=== PATIENT | female | born 1985 | race Caucasian/White ===

== ENCOUNTER 2017-08-02 09:33 | Emergency (ER) | payer OTHER ==
[2017-08-02 09:42] VITALS: BP 122/87
--- NOTE | 2017-08-02 11:20 | UC ---
Erik Marie Nikita, scribed for Chacho Monroe MD on 08/02/17 at 0953 . Skin Complaint HPI - HPI Summary HPI Summary: This patient is a 31 year old F presenting to [facility] with a chief complaint of a bee sting since 2 days ago. The CC is described as on the L upper lip area. The patient rates the pain 0/10 in severity. Symptoms aggravated by nothing. Symptoms alleviated by nothing (took Benadryl on day of sting without improvement). Patient reports increased redness and swelling on L side of her face. Patient denies SOB and respiratory sx. The patient is . - History of Current Complaint Chief Complaint: UCSkin Time Seen by Provider: 08/02/17 09:38 Stated Complaint: BEE STING Hx Obtained From: Patient Hx Last Menstrual Period: 07/29/17 ?: Yes Onset/Duration: Sudden Onset, Lasting Days, Still Present Skin Exposure Onset/Duration: Days Ago Timing: Constant Current Severity: None Pain Intensity: 0 Pain Scale Used: 0-10 Numeric Location: Other - L upper lip Aggravating Factor(s): Nothing Alleviating Factor(s): Nothing - Allergy/Home Medications Allergies/Adverse Reactions: Allergies Allergy/AdvReac Type Severity Reaction Status Date / Time No Known Allergies Allergy Verified 08/02/17 09:37 Home Medications: Home Medications diPHENhydraMINE PO* [Benadryl PO 25 MG TAB*] 2 tab PO ONCE PRN 08/02/17 [ History Confirmed 08/02/17] Review of Systems Skin: Other - bee sting, increased redness and swelling on L side of her face Respiratory: Other - denies SOB or any respiratory sx All Other Systems Reviewed And Are Negative: Yes PMH/Surg Hx/FS Hx/Imm Hx Endocrine History: Other Other Endocrine History: No DM Cardiovascular History: Other Other Cardiovascular History: No CAD, HTN - Surgical History Surgical History: None - Family History Known Family History: Positive: Hypertension Negative: Diabetes - Social History Alcohol Use: Occasionally Substance Use Type: None Smoking Status (MU): Heavy Every Day Tobacco Smoker Amount Used/How Often: 1/2 PPD Household Exposure Type: Cigarettes Physical Exam - Summary Physical Exam Summary: VITAL SIGNS: Reviewed. GENERAL: ~Patient is a well-developed and nourished FEMALE who is lying comfortable in the stretcher. ~Patient is not in any acute respiratory distress. HEAD AND FACE: Swelling on L side of face with some erythema. EYES: PERRLA, EOMI x 2. EARS: Hearing grossly intact. MOUTH: Oropharynx within normal limits. NECK: Supple, trachea is midline, no adenopathy, no JVD, no carotid bruit. CHEST: Symmetric, no tenderness at palpation LUNGS: Clear to auscultation bilaterally. No wheezing or crackles. CVS: Regular rate and rhythm, S1 and S2 present, no murmurs or gallops appreciated. ABDOMEN: Soft, non-tender. Bowel sounds are normal. No abdominal abnormal pulsations. EXTREMITIES: Full ROM in all major joints, no edema, no cyanosis or clubbing. NEURO: Alert and oriented x 3. No acute neurological deficits. Speech is normal and follows commands. SKIN: Dry and warm Triage Information Reviewed: Yes Vital Signs: Initial Vital Signs Temp 98.4 F 08/02/17 09:38 Pulse 82 08/02/17 09:38 Resp 16 08/02/17 09:38 BP 122/87 08/02/17 09:38 Pulse Ox 100 08/02/17 09:38 Vital Signs Reviewed: Yes Course/Dx - Course Course Of Treatment: This patient is a 31 year old F presenting to [facility] with a chief complaint of a bee sting since 2 days ago. The patient was found to have increased BP in UC. The patient will follow up with PCP for better control of BP. The pt is hemodynamically stable, alert and oriented x3. I discussed all the findings and test results with the patient. The patient will be discharged with instructions to follow up with their PCP. Patient was instructed to return to the urgent care or go to ER immediately if any of the symptoms return or worsens. Plan of care was discussed with the patient, and patient understands and agrees. All questions were answered to patient satisfaction. There were no further complaints or concerns. - Diagnoses Provider Diagnoses: cellulitis Discharge - Sign-Out/Discharge Documenting (check all that apply): Discharge/Admit/Transfer - Discharge Plan Condition: Stable Disposition: HOME Prescriptions: Amoxicillin PO (*) [Amoxicillin 875 MG (*)] 875 mg PO BID #20 tab Patient Education Materials: Cellulitis (ED) Referrals: Valdez Whitfield MD [Primary Care Provider] - Additional Instructions: Take medications as instructed Increase your fluid intake Return to the UC if symptoms worsen The documentation as recorded by the samibErik mcdonald Nikita accurately reflects the service I personally performed and the decisions made by me, Chacho Monroe MD.
== END 2017-08-02 09:57 | disposition home or self-care (01) ==
LOC: UCEAST 09:33
DX: O26.899 Other specified pregnancy related conditions, unspecified trimester (principal); K13.0 Diseases of lips; F17.210 Nicotine dependence, cigarettes, uncomplicated
CPT/HCPCS: 99212; G0463

== ENCOUNTER 2018-11-11 10:58 | Emergency (ER) | payer OTHER ==
[2018-11-11] MEDS ORDERED: Metoclopramide IV* 5 MG/ML 2 ML VIAL IV SLOW PU ONE (12:57)
[2018-11-11] MEDS ORDERED: NS 0.9% 1000 ML** 1,000 ML IV ONE (13:00)
--- NOTE | 2018-11-11 13:17 | UC ---
Nausea/Vomiting/Diarrhea HPI - HPI Summary HPI Summary: 33-year-old female who is 31 weeks presents from [facility] for 3-4 day history of general malaise, headache, nausea, vomiting, low back pain, and abdominal cramping. Reports she is only had a couple episodes of emesis. Typically occur after eating. States she was evaluated by MEGAN Gomez, including monitoring and was told she did not feel it was related and suggested she come to urgent care for fluids and antiemetics. Patient states that she also had a urinalysis performed which was normal. . Denies fever, chills, visual disturbances, neck pain, rash, chest pain, shortness of breath, dysuria, hematuria, no discharge, or vaginal bleeding. - History of Current Complaint Chief Complaint: UCAbdominalPain Stated Complaint: ABDOMINAL COMPLAINT VOMITING Time Seen by Provider: 11/11/18 12:33 Hx Obtained From: Patient ?: Yes - 31 weeks Pain Intensity: 4 - Allergies/Home Medications Allergies/Adverse Reactions: Allergies Allergy/AdvReac Type Severity Reaction Status Date / Time No Known Allergies Allergy Verified 11/11/18 11:31 Home Medications: Home Medications Anw226/Iron Fum/Folic/Docusate [ 19 Tablet] 11/11/18 [History] PMH/Surg Hx/FS Hx/Imm Hx Previously Healthy: Yes - Denies significant PMH Other History Of: Negative For: Anticoagulant Therapy - Surgical History Surgical History: None - Family History Known Family History: Positive: Hypertension Negative: Diabetes - Social History Occupation: Employed Full-time Lives: With Family Alcohol Use: None Substance Use Type: None Smoking Status (MU): Heavy Every Day Tobacco Smoker Amount Used/How Often: 1/2 PPD Household Exposure Type: Cigarettes - Immunization History Vaccination Up to Date: Yes Review of Systems All Other Systems Reviewed And Are Negative: Yes Constitutional: Negative: Fever, Chills Skin: Negative: Rash Respiratory: Positive: Negative Cardiovascular: Positive: Negative Gastrointestinal: Positive: Abdominal Pain - Cramping, Vomiting, Nausea. Negative: Diarrhea Genitourinary: Negative: Dysuria, Hematuria, Frequency, Urgency, Vaginal/Penile Discharge, Abnormal Bleeding Musculoskeletal: Positive: Negative Neurological: Positive: Negative Is Patient Immunocompromised?: No Physical Exam - Summary Physical Exam Summary: GENERAL APPEARANCE: Well developed, well nourished, alert and cooperative, and appears to be in no acute distress. EYES: Conjunctiva clear. No drainage. EARS: External auditory canals and tympanic membranes clear, hearing grossly intact. NOSE: No nasal discharge. THROAT: Pharynx normal No tonsilar inflammation, swelling, exudate, or lesions. Uvula midline. Oral cavity normal. Teeth and gingiva in good general condition. NECK: Neck supple, non-tender without lymphadenopathy. CARDIAC: Normal S1 and S2. No S3, S4 or murmurs. Rhythm is regular. There is no peripheral edema, cyanosis or pallor. Extremities are warm and well perfused. Capillary refill is less than 2 seconds. Peripheral pulses intact. LUNGS: Clear to auscultation without rales, rhonchi, wheezing or diminished breath sounds. ABDOMEN: Positive bowel sounds. Soft, nondistended, nontender. No guarding or rebound. No masses or hepatosplenomegally. Fundus consistent with gestational age. MUSKULOSKELETAL: ROM intact to all extremities. No joint erythema or tenderness. Normal muscular development. Normal gait. SKIN: Skin normal color, texture and turgor with no lesions or eruptions. Triage Information Reviewed: Yes Vital Signs: Initial Vital Signs Temp 98.6 F 11/11/18 11:23 Pulse 85 11/11/18 11:23 Resp 18 11/11/18 11:23 BP 122/85 11/11/18 11:23 Pulse Ox 99 11/11/18 11:23 Vital Signs Reviewed: Yes Re-Evaluation - Re-Evaluation First Eval Re-Evaluation Time: 13:58 Change: Improved Comment: Patient states her nausea has subsided. She has received about 700 ml of IVF. Reviewed her UA results with her. Patient states she is feeling very tired and would like to go home at this time to rest. I feel that this is reasonable however discussed with the patient that if she has further abdominal cramping with vomiting that she should be evaluated in the ED. She is agreeable to this. Naus/Vom/Diarrhea Course/Dx - Course Course Of Treatment: 33-year-old female who is 31 weeks presents from [facility] for 3-4 day history of general malaise, headache, nausea, vomiting, low back pain, and abdominal cramping. Reports she is only had a couple episodes of emesis. Typically occur after eating. States she was evaluated by MEGAN Gomez, including monitoring and was told she did not feel it was related and suggested she come to urgent care for fluids and antiemetics. Patient states that she also had a urinalysis performed which was normal. . Denies fever, chills, visual disturbances, neck pain, rash, chest pain, shortness of breath, dysuria, hematuria, no discharge, or vaginal bleeding. Afebrile. Vital signs stable. Exam was overall unremarkable. Point -of-care urinalysis was normal. Patient was given IV fluids and metoclopramide 10 mg IV with improvement in her symptoms. Patient received a total of about 700 mL of normal saline before requesting to be discharged home. She is to follow-up with her [employer]CRA[employer] TEACHER within 3 days if her symptoms are not improving. Anticipatory guidance and warning symptoms requiring immediate evaluation in the emergency room were reviewed with the patient. Verbalizes understanding and agrees with plan of care. - Differential Dx/Diagnosis Differential Diagnoses - Female: , Urinary Tract Infection, Gastroenteritis (Viral), Gastroenteritis (Bacterial), Vomiting Provider Diagnosis: Nausea and vomiting during Condition At Discharge: Stable Discharge - Sign-Out/Discharge Documenting (check all that apply): Patient Departure All imaging exams completed and their final reports reviewed: No Studies - Discharge Plan Condition: Stable Disposition: HOME Patient Education Materials: Nausea and Vomiting in (ED) Referrals: No Primary Care Phys,NOPCP [Primary Care Provider] - Ben Wright MD [Medical Doctor] - 3 Days Additional Instructions: You were given IV fluids and a medication called metoclopramide for your nausea. Your urine test was normal. Drink plenty of fluids. Try to drink small amounts frequently to avoid filling your stomach to full which can cause vomiting. If you are still having vomiting, start with a clear liquid diet including soup broths, Jello, popsicles, and yony-josafat with carbonation stirred out of it. You may then advance to a bland diet including saltine crackers, toast, bananas , rice, and applesauce. Then return to a normal diet as tolerated. Follow up with your [employer]CRAFTS TEACHER in 3 days especially if symptoms persist. Seek immediate medical attention in the emergency room if you develop fever greater than 100.5 F, have severe abdominal pain, persistent vomiting, blood in your vomit or stool, or any worsening of symptoms. - Billing Disposition and Condition Condition: STABLE Disposition: Home
[2018-11-11 14:01] VITALS: BP 117/63
== END 2018-11-11 14:12 | disposition home or self-care (01) ==
LOC: UCEAST 10:58
DX: O26.893 Other specified pregnancy related conditions, third trimester (principal); O99.333 Smoking (tobacco) complicating pregnancy, third trimester; Z3A.31 31 weeks gestation of pregnancy
CPT/HCPCS: 81003; 96360; 96374; 99211; G0463; J2765

== ENCOUNTER 2019-01-03 05:57 | Inpatient (IN) | payer OTHER ==
--- NOTE | 2019-01-02 18:55 | HP ---
General Information - Reason for Visit Patient with a 39 week in breech presentation, desires permanent sterilization. - General Information Maternal Age: 33 Grav: 7 Para: 1 SAB: 4 IEA: 1 Estimated Due Date: 01/10/19 Determined By: Early Ultrasound Gestational Age in Weeks/Days: 39 0/7 Maternal Blood Type and Rh: B Positive - Results this Serology/RPR Result: Non-Reactive Rubella Result: Immune HBsAg Result: Negative HIV Result: Negative GBS Culture Result: Negative Past Medical History Delivery History: See Records Pertinent Past Medical History: See Records Past Medical History Comment: Anxiety Cigarette smoker Tension Headaches Presumptive endometriosis Pertinent Past Surgical History: See Records Pertinent Family History: See Records - Antepartal Records Antepartal Records: Reviewed, Complicated by: - Breech presentation Exam Allergies/Adverse Reactions: Allergies No Known Allergies Allergy (Verified 01/01/19 13:54) Temp 89.7 BP 122/84 P 84 RR 20 Lab Values - Entire Visit: Laboratory Tests 01/01/19 13:45 WBC Cancelled RBC Cancelled Hgb Cancelled Hct Cancelled MCV Cancelled MCH Cancelled MCHC Cancelled RDW Cancelled Plt Count Cancelled MPV Cancelled Neut % (Auto) Cancelled Lymph % (Auto) Cancelled [place] % (Auto) Cancelled Eos % (Auto) Cancelled Baso % (Auto) Cancelled Absolute Neuts (auto) Cancelled Absolute Lymphs (auto) Cancelled Absolute Monos (auto) Cancelled Absolute Eos (auto) Cancelled Absolute Basos (auto) Cancelled Absolute Nucleated RBC Cancelled Nucleated RBC % Cancelled Hypogranular Platelets Cancelled Clumped Platelets Cancelled Large Platelets Cancelled Giant Platelets Cancelled - Measurements Height: 5 ft 2 in Weight: 183 lb Weight in lbs: 183.168023 Body Mass Index (BMI): 33.5 Pre- Weight: 156 lb Weight Gained This : 27 lbs and 0 ozs - Exam Breast: Breast Exam Deferred CVA: No CVA Tenderness Extremities: No Edema Heart: Normal Rhythm/Heart Sounds HEENT: No Significant Findings Lungs: Clear Bilaterally Rectal: Rectal Exam Deferred Reflexes: DTR 2+ Thyroid: No Thyromegaly - Abdominal Exam Abdomen Exam: Non-Tender, Fundal Height Consistent with Dates - Ultrasound/Biophysical Profile Ultrasound Status: Bedside Exam - Breech presentation confirmed at office ultrasound 01/02/19 Targeted Exam Findings See L&D Outpatient Visit Provider Note for Findings: N/A Cervical Exam: Closed Effacement: 70% Station: -2 Presenting Part: Breech Membrane Status: Intact EFM Findings - External Monitor Findings Baseline Heart Rate: 140 - by dopplers Contractions: None Assessment/Plan - Assessment Term breech presentation, desires delivery and sterilization , declined External version. - Obstetrical Risk Factors Obstetrical Risk Factors: Breech - Plan Plan: IV Hydration, Antibiotic Prophylaxis, C/S Delivery - Date/Time of Admission Date of Admission: 01/03/19 Time of Admission: 06:00
[~2019-01-03 05:57] MED LIST: Buffered Lidocaine 1% SYRIN* 1 ML/SYRINGE INTRADERM ONE; Lactated Ringers 1000 ML Bag* 1,000 ML IV SCH
[2019-01-03] MEDS ORDERED: Acetaminophen TAB* 325 MG PO ONE (06:00)
[2019-01-03] MEDS ORDERED: ceFOXitin 2 GM IVPREMIX* 2 GM/50 ML BAG IVPB ONE (06:00)
[2019-01-03] MEDS ORDERED: Sodium Citrate/Citric Acid* 15 ML UDC PO ONE (06:00)
[2019-01-03] MEDS ORDERED: Lactated Ringers 1000 ML Bag* 1,000 ML IV SCH ×2 (06:00→10:00)
[2019-01-03] MEDS ORDERED: Morphine PF AMP (0.5MG/ML)* 5 MG/10 ML AMP ONE (07:40)
[2019-01-03] MEDS ORDERED: OXYTOCIN* 10 UNITS/ML 1 ML VIAL ONE (07:40)
[2019-01-03] MEDS ORDERED: Bupivacaine 0.5% SDV PF* 30ML VIAL ONE (07:40)
[2019-01-03 07:44] LABS: Urine Benzodiazepine Screen None Detected (None Detect); Urine Opiates Screen None Detected (None Detect)
[2019-01-03] MEDS ORDERED: Scopolamine 1.5 mg* PATCH ONE (08:08)
[2019-01-03] MEDS ORDERED: Phenylephrine 40 MCG/ML SYRINGE ONE (08:27)
[2019-01-03] MEDS ORDERED: Dexamethasone IV* 4 MG/ML 1 ML (4 MG) ONE (08:32)
[2019-01-03] MEDS ORDERED: Ondansetron INJ* 2 MG/ML VIAL ONE (08:32)
[2019-01-03] MEDS ORDERED: Acetaminophen IV 1GM/100ML * 100 ML ONE (08:40)
[2019-01-03] MEDS ORDERED: EPHEDrine (Pressors)* 50 MG/ML VIAL ONE (08:41)
[2019-01-03] MEDS ORDERED: Ketorolac INJ* 30 MG/ML 1 ML VIAL ONE (09:13)
[2019-01-03] MEDS ORDERED: DiMENhydriNATE IV* 50 MG/ML VIAL ONE (09:18)
[2019-01-03] MEDS ORDERED: Zolpidem TAB* 5 MG PO PRN (09:42)
[2019-01-03] MEDS ORDERED: Glycerin ADULT SUPP PR PRN (09:42)
[2019-01-03] MEDS ORDERED: Witch Hazel PAD* JAR TOPICAL PRN (09:42)
[2019-01-03] MEDS ORDERED: Dibucaine 1% 28.35 GM TUBE PR PRN (09:42)
[2019-01-03] MEDS ORDERED: fentaNYL* 50 MCG/ML 2 ML VIAL (100 MCG VIAL) IV PRN (10:17)
[2019-01-03] MEDS ORDERED: Naloxone* 0.4 MG/ML 1 ML VIAL IV PRN ×2 (10:17)
[2019-01-03] MEDS ORDERED: PROCHLORPERAZINE INJ 5 MG/ML 2 ML VIAL IV PRN (10:17)
[2019-01-03] MEDS ORDERED: Nalbuphine* 10 MG/ML 1 ML VIAL IV PRN (10:17)
[2019-01-03] MEDS ORDERED: diPHENhydraMINE IV* 50 MG/ML 1 ml VIAL (BENADRYL) IV PRN (10:17)
[2019-01-03] MEDS ORDERED: DiMENhydriNATE IV* 50 MG/ML VIAL IV PUSH PRN (10:17)
[2019-01-03] MEDS ORDERED: HYDROcodone/ACETAMIN 5-325 MG* 1 TAB PO PRN (10:17)
[2019-01-03] MEDS ORDERED: Ondansetron INJ* 2 MG/ML VIAL IV PRN (10:17)
[2019-01-03] MEDS ORDERED: Ketorolac INJ* 30 MG/ML 1 ML VIAL IV SCH (11:00)
[2019-01-03] MEDS: Simethicone TAB* 80 MG TAB.CHEW PO SCH ×3 (13:42→21:44)
[2019-01-03] MEDS: Docusate CAP* 100 MG PO SCH ×2 (13:43→21:44)
[2019-01-03] MEDS: Acetaminophen TAB* 325 MG PO SCH ×2 (15:32→19:59)
[2019-01-03] MEDS: Ketorolac INJ* 30 MG/ML 1 ML VIAL IV SCH ×2 (15:32→23:11)
[2019-01-04] MEDS: Acetaminophen TAB* 325 MG PO PRN (04:52)
[2019-01-04] MEDS: Acetaminophen TAB* 325 MG PO SCH (04:53)
[2019-01-04] MEDS: Ketorolac INJ* 30 MG/ML 1 ML VIAL IV SCH (05:17)
[2019-01-04 06:12] LABS: ABS Eosinophils 0.1 10^3/ul (0-0.6); ABS Lymphocytes 1.7 10^3/ul (1.0-4.8); ABS Monocytes 0.9 10^3/ul (0-0.8); ABS Neutrophils 7.5 10^3/ul (1.5-7.7); Eosinophil % 0.6 %; Hematocrit 25 % (35-47); Hemoglobin 8.3 g/dL (12.0-16.0); Lymphocyte % 16.3 %; Mean Corpuscular HGB Conc 33 g/dL (31-36); Mean Corpuscular Hemoglobin 26 pg (27-31); Mean Corpuscular Volume 79 fL (80-97); Mean Platelet Volume 8.8 fL (7.4-10.4); Platelet Count 253 10^3/uL (150-450); Red Blood Count 3.16 10^6 /uL (3.70-4.87); Red Cell Distribution Width 15 % (10-15); White Blood Count 10.2 10^3/uL (3.5-10.8)
[2019-01-04] MEDS: Simethicone TAB* 80 MG TAB.CHEW PO SCH ×4 (08:23→21:18)
[2019-01-04] MEDS: Docusate CAP* 100 MG PO SCH ×3 (08:23→21:18)
[2019-01-04] MEDS: Ferrous Gluconate TAB* 324 MG TAB PO SCH ×2 (08:23→21:18)
[2019-01-04] MEDS: oxyCODONE/Acetamin 5/325 MG* TAB PO PRN ×4 (10:09→21:19)
[2019-01-04] MEDS: Ibuprofen TAB* 600 MG PO PRN ×2 (12:20→18:24)
--- NOTE | 2019-01-04 15:56 | PN ---
Progress Note - Progress Note Date of Service: 01/04/19 Note: [SUBJECTIVE: Pt doing well this AM. POD#1 s/p pLTCS, BTL for Breech presentation, elective BTL. Pain control adequate. Tolerating regular diet. Woodard out and voiding spontaneously. Bottle feeding baby. Denies fever, chills, n/v/d, cp, sob. ] Objective: [AVSS, afebrile, hemodynamically stable Gen: nad, aaox3 CV: RRR Pulm: CTABL Abd: soft, nd, nttp, no rebound, no guarding, fundus firm below the Umbilicus Incision: c/d/i with steris Ext: warm, nttp, neg joseline's, SCD's on and inflating : woodard out, voiding spontaneously] Assessment/Plan: 19 y/o POD#1 s/p pLTCS, BTL, for breech, doing well post-operatively: - AVSS, afebrile, hemodynamically stable - post op H/H hct 25 - on PO Fe. Pt is asymptomatic. - Doing well post operatively - Woodard out - s/p spontaneous void - Tolerating regular diet - Pain appropriately controlled - Incision c/d/i with steris and subcuticular sutures - Bottle Feeding - Desires Circ for baby boy - Continue routine post-operative care DO TOBIAS Antonio
[2019-01-05] MEDS: oxyCODONE/Acetamin 5/325 MG* TAB PO PRN ×4 (01:39→20:47)
[2019-01-05] MEDS: Ferrous Gluconate TAB* 324 MG TAB PO SCH ×2 (08:13→20:48)
[2019-01-05] MEDS: Simethicone TAB* 80 MG TAB.CHEW PO SCH ×4 (08:13→20:48)
[2019-01-05] MEDS: Docusate CAP* 100 MG PO SCH ×4 (08:13→20:48)
[2019-01-05] MEDS: Ibuprofen TAB* 600 MG PO PRN ×3 (08:13→15:52)
--- NOTE | 2019-01-05 10:58 | PN ---
Progress Note - Progress Note Date of Service: 01/05/19 Note: SUBJECTIVE: Pt doing well this AM. POD#2 s/p pLTCS, BTL for Breech presentation, elective BTL. Pain control adequate. Tolerating regular diet. Woodard out and voiding spontaneously. Bottle feeding baby, discussed benefits of breast feeding, pt is contemplating, nursing offered help. Denies fever, chills, n/v/d, cp, sob. Objective: AVSS, afebrile, hemodynamically stable Gen: nad, aaox3 CV: RRR Pulm: CTABL Abd: soft, nd, nttp, no rebound, no guarding, fundus firm below the Umbilicus Incision: c/d/i with steris Ext: warm, nttp, neg joseline's, SCD's on and inflating : woodard out, voiding spontaneously Assessment/Plan: 33 y/o POD#2 s/p pLTCS, BTL, for breech, doing well post-operatively: - AVSS, afebrile, hemodynamically stable - post op H/H hct 25 - on PO Fe. Pt is asymptomatic. - Doing well post operatively - Woodard out - voiding spontaneously - Tolerating regular diet - Pain appropriately controlled - Incision c/d/i with steris and subcuticular sutures - Bottle Feeding, contemplating trying breast feeding, nursing assistance and support reviewed with pt, encouraged to try BF - Desires Circ for baby boy - to be done this AM - Continue routine post-operative care, anticipate discharge home tomorrow DO TOBIAS Antonio
[2019-01-05] MEDS: Acetaminophen TAB* 325 MG PO PRN (15:08)
--- NOTE | 2019-01-05 22:27 | OP ---
CC: Dequan Gomez MD.* DATE OF OPERATION: 01/03/19 - ROOM #105 DATE OF : 83 SURGEON: Ben Wright MD. PRESS SET UP: Dequan Gomez MD. ANESTHESIA: Spinal. PRE-OP DIAGNOSES: 1. Intrauterine at 39 weeks. 2. Breech presentation. 3. The patient desires sterilization. POST-OP DIAGNOSES: 1. Intrauterine at 39 weeks. 2. Breech presentation. 3. The patient desires sterilization. OPERATIVE PROCEDURE: Low transverse section and bilateral tubal ligation via fimbriectomy. ESTIMATED BLOOD LOSS: 600 cc. SPECIMENS SENT TO PATHOLOGY: Bilateral tubal fimbriae. FLUIDS: She received 3600 cc of IV crystalloid fluid. URINE OUTPUT: Clear. FINDINGS: Delivery of a male in jorge breech presentation, weighing 8 pounds 6 ounces, with nuchal cord x2 and meconium fluid. Apgars were 9 and 9. The placenta was grossly intact with a 3-vessel cord noted. The uterus, adnexa , bowel, and bladder were all within normal limits and there were no complications. DESCRIPTION OF PROCEDURE: The patient was taken to the operating room where she was identified. She was placed on the operating table where a spinal anesthetic was obtained without difficulty. She was then placed in the supine position with a leftward tilt, prepped and draped in a normal sterile fashion. A Pfannenstiel skin incision was made with a knife and carried through to the underlying layer of fascia. The fascia was nicked in the midline and extended laterally with curved Oswald scissors. The fascia was then grasped superiorly and inferiorly with Hortensia clamps and dissected off sharply from the rectus muscle. The rectus muscle was in the midline bluntly. The peritoneum was identified, grasped with pickups, entered sharply with Metzenbaum scissors and extended superiorly and inferiorly, sharply. A bladder blade was inserted into the patient's abdomen. A bladder flap was created using Metzenbaum scissors, over which the bladder blade was then reinserted. A low transverse uterine incision was made with a knife, extended laterally with bandage scissors. The amniotic sac was ruptured. Clear fluid was noted. The infant's breech was then grasped and the infant was delivered through breech extraction. After the infant was delivered, nuchal cord x2 was reduced. The cord was clamped and cut, and the infant was handed off to the waiting shrinker. Cord blood was obtained. The placenta was removed manually. The uterus was then exteriorized, cleared of all clot and debris using moist laparotomy sponges. The uterine incision was then closed using 0 Polysorb suture in a running locked fashion with a second imbricating layer of 0 Polysorb suture with good hemostasis noted. The uterus was then returned to the patient's abdomen. The gutters were then cleared of all clot and debris using irrigation and moist laparotomy sponges. Irrigation fluid was suctioned. The sponges were then removed from the patient's abdomen. The sponge and lap count was correct x1 as well as the instrument count. The peritoneum was then closed using 3-0 Polysorb suture in a running fashion. The fascia was closed using 0 Polysorb suture in a running fashion and the skin was closed with a 4-0 Monocryl subcuticular stitch. The patient tolerated the procedure well. Sponge , lap, and needle counts were correct x2. She was then transferred to the recovery area in stable condition. [id number]/[facility] #: [id number] TOMMY
[2019-01-06] MEDS: oxyCODONE/Acetamin 5/325 MG* TAB PO PRN ×3 (01:40→09:31)
[2019-01-06] MEDS: Ibuprofen TAB* 600 MG PO PRN ×2 (01:41→08:39)
[2019-01-06 07:58] VITALS: BP 134/83
[2019-01-06] MEDS: Simethicone TAB* 80 MG TAB.CHEW PO SCH (08:39)
[2019-01-06] MEDS: Docusate CAP* 100 MG PO SCH (08:39)
[2019-01-06] MEDS: Ferrous Gluconate TAB* 324 MG TAB PO SCH (08:39)
[2019-01-06] MEDS ORDERED: Scopolamine PATCH Remove* 1 NOTE MISC PATCH OFF ONE (10:17)
[2019-01-06] MEDS ORDERED: Scopolamine PATCH Remove* 1 NOTE MISC PATCH OFF PRN (10:19)
--- NOTE | 2019-02-14 14:36 | OP ---
OPERATIVE REPORT: ADDENDUM: DATE OF OPERATION: 01/03/19 DATE OF : 83 SURGEON: Ben Wright MD. PRE-OP DIAGNOSES: 1. Intrauterine at 39 weeks. 2. Breech presentation. 3. The patient desires sterilization. POST-OP DIAGNOSES: 1. Intrauterine at 39 weeks. 2. Breech presentation. 3. The patient desires sterilization. DESCRIPTION OF PROCEDURE: After the uterus was exteriorized, the uterine incision was closed using 0 Polysorb sutures. Attention was then brought onto the patient's fallopian tubes bilaterally which w ere then grasped with a Anabela and a Rosana clamp and bilateral fimbriectomy was performed in the usu al fashion using 3-0 Polysorb sutures. Portions of the right and left fallopian tube were sent to pa thjonathan. The surgical site of the tubal ligation was hemostatic. The uterus was then reintroduced i nto the patient's abdomen after which the gutters were cleared of all clots and debris using moist la parotomy sponges. The peritoneum was closed using 3-0 Polysorb suture in a running fashion. The fas ganga was closed using 0 Polysorb suture in a running fashion and the skin was closed with 4-0 Monocryl subcuticular stitch. The patient tolerated the procedure well. Sponge, lap and needle counts were correct x2. She was then transferred to the recovery room area in stable condition. [id number]/[facility] #: [id number]
== END 2019-01-06 09:47 | disposition home or self-care (01) | DRG 540 ==
LOC: MCHOB 05:57
PROVIDERS: ADMIT Obstetrics & Gynecology; ATTEND Obstetrics & Gynecology
PROC: 0UB70ZZ Excision of Bilateral Fallopian Tubes, Open Approach (ICD-10-PCS; 2019-01-03)
PROC: 10D00Z1 Extraction of Products of Conception, Low, Open Approach (ICD-10-PCS; principal; 2019-01-03 07:45)
DX: O32.1XX0 Maternal care for breech presentation, not applicable or unspecified (principal); O99.334 Smoking (tobacco) complicating childbirth; O99.344 Other mental disorders complicating childbirth; F41.9 Anxiety disorder, unspecified; O77.0 Labor and delivery complicated by meconium in amniotic fluid; O69.81X0 Labor and delivery complicated by cord around neck, without compression, not applicable or unspecified; O90.81 Anemia of the puerperium; D64.9 Anemia, unspecified; Z3A.39 39 weeks gestation of pregnancy; Z37.0 Single live birth; Z30.2 Encounter for sterilization
CPT/HCPCS: 36415; 76815; 80307; 85025; 88302; A9270-GY; J0694; J1100; J1240; J1885; J2300; J2405; J2590; J3490

== ENCOUNTER 2019-06-24 22:56 | Emergency (ER) | payer OTHER ==
--- NOTE | 2019-06-24 23:07 | ED ---
Abdominal Pain/Female - HPI Summary HPI Summary: Patient complains of sudden onset severe lower abdominal pain starting immediately after intercourse tonight at 10 PM. States she felt fine prior, no pain during intercourse. Denies rough sex or foreign body penetration. One episode of vomiting and diaphoresis with sudden onset pain. Pain worse when lying on back or with movement. Denies prior history of same symptoms. Denies fever, cough, sore throat, CP, SOB, diarrhea, change in urine, change in BM, vaginal discharge or bleeding. Recent history of UTI, took last Bactrim today. Currently no urine symptoms. Medical history is none. Abdominal surgical history 1 in 2019. - History of Current Complaint Chief Complaint: EDAbdPain Stated Complaint: ABD PAIN PER PT Time Seen by Provider: 06/24/19 23:04 Hx Obtained From: Patient Onset/Duration: Sudden Onset, Lasting Hours Timing: Constant Severity Initially: Severe Severity Currently: Moderate Pain Intensity: 7 Pain Scale Used: 0-10 Numeric Location: Discrete At: RLQ, Discrete At: LLQ, Suprapubic Radiates: No Character: Sharp Aggravating Factor(s): Movement Alleviating Factor(s): Position Associated Signs and Symptoms: Positive: Vomiting Allergies/Adverse Reactions: Allergies Allergy/AdvReac Type Severity Reaction Status Date / Time No Known Allergies Allergy Verified 06/24/19 23:04 Home Medications: Home Medications [id number]/Iron Fum/Folic/Docusate [ 19 Tablet] 1 tab PO DAILY 11/11/18 [ History Confirmed 01/03/19] Calcium Carbonate [Tums] 200 mg PO SEE INSTRUCTIONS PRN 01/01/19 [History Confirmed 01/03/19] Gas-X 1 tab PO SEE INSTRUCTIONS PRN 01/01/19 [History Confirmed 01/03/19] Ibuprofen TAB* [Motrin TAB* 600 MG] 600 mg PO Q6H PRN tab 01/06/19 [Rx] oxyCODONE/Acetamin 5/325 MG* [Percocet 5/325 TAB*] 2 tab PO Q4H PRN #20 tab MDD 8 01/06/19 [Rx] PMH/Surg Hx/FS Hx/Imm Hx Endocrine/Hematology History: Denies: Hx Anticoagulant Therapy, Hx Diabetes, Hx Thyroid Disease Cardiovascular History: Denies: Hx Hypertension, Hx Pacemaker/ICD Respiratory History: Reports: Hx Asthma - as child Denies: Hx Chronic Obstructive Pulmonary Disease (COPD) GI History: Denies: Hx Ulcer History: Denies: Hx Dialysis Sensory History: Denies: Hx Eye Injury, Hx Eye Prosthesis, Hx Deafness Opthamlomology History: Denies: Hx Eye Injury, Hx Eye Prosthesis Neurological History: Denies: Hx Dementia Psychiatric History: Reports: Hx Anxiety, Hx Depression, Hx Community Mental Health Tx Denies: Hx Attention Deficit Hyperactivity Disorder, Hx Autism, Hx Eating Disorder, Hx Panic Disorder, Hx Post Traumatic Stress Disorder, Hx Inpatient Treatment, Hx Schizophrenia, Hx Bipolar Disorder, Hx Suicide Attempt, Hx of Violent Episodes Against Others, Hx Substance Abuse, Other Psychiatric Issues/ Disorders - Immunization History Date of Tetanus Vaccine: Unk Date of Influenza Vaccine: None Infectious Disease History: No Infectious Disease History: Denies: Hx Hepatitis, Hx Human Immunodeficiency Virus (HIV), History Other Infectious Disease, Traveled Outside the [place] in Last 30 Days - Family History Known Family History: Positive: Hypertension Negative: Diabetes - Social History Alcohol Use: None Hx Substance Use: No Substance Use Type: Reports: None Hx Tobacco Use: Yes Smoking Status (MU): Light Every Day Tobacco Smoker Type: Cigarettes Amount Used/How Often: 1/2 PPD Review of Systems Constitutional: Negative Eyes: Negative ENT: Negative Cardiovascular: Negative Respiratory: Negative Positive: Abdominal Pain, Vomiting Genitourinary: Negative Musculoskeletal: Negative Skin: Negative Neurological/Mental Status: Negative Psychological: Normal All Other Systems Reviewed And Are Negative: Yes Physical Exam Triage Information Reviewed: Yes Vital Signs On Initial Exam: Initial Vitals Temp Pulse Resp BP Pulse Ox 97.6 F 78 16 127/85 100 06/24/19 22:57 06/24/19 22:57 06/24/19 22:57 06/24/19 22:57 06/24/19 22:57 Vital Signs Reviewed: Yes Appearance: Positive: Well-Appearing Skin: Positive: Warm Head/Face: Positive: Normal Head/Face Inspection Eyes: Positive: Normal Neck: Positive: Supple Respiratory/Lung Sounds: Positive: Clear to Auscultation Cardiovascular: Positive: Normal Abdomen Description: Positive: Other: - Tender in bilateral lower quadrants and suprapubically. Abdominal exam otherwise unremarkable. Musculoskeletal: Positive: Normal Neurological: Positive: Normal Psychiatric: Positive: Normal AVPU Assessment: Alert - [place] Coma Scale Best Eye Response: 4 - Spontaneous Best Motor Response: 6 - Obeys Commands Best Verbal Response: 5 - Oriented Coma Scale Total: 15 Procedures - Sedation Patient Received Moderate/Deep Sedation with Procedure: No Diagnostics - Vital Signs Vital Signs Temp Pulse Resp BP Pulse Ox 06/24/19 22:57 97.6 F 78 16 127/85 100 - Laboratory Result Diagrams: 06/24/19 23:19 06/24/19 23:19 Lab Statement: Any lab studies that have been ordered have been reviewed, and results considered in the medical decision making process. Abdominal Pain Fem Course/Dx - Course Course Of Treatment: Patient complains of sudden onset severe lower abdominal pain starting immediately after intercourse tonight at 10 PM. States she felt fine prior, no pain during intercourse. Denies rough sex or foreign body penetration. One episode of vomiting and diaphoresis with sudden onset pain. Pain worse when lying on back or with movement. Denies prior history of same symptoms. Denies fever, cough, sore throat, CP, SOB, diarrhea, change in urine , change in BM, vaginal discharge or bleeding. Recent history of UTI, took last Bactrim today. Currently no urine symptoms. Medical history is none. Abdominal surgical history 1 in 2019. Vital signs within normal limits. Labs unremarkable. Transvaginal ultrasound positive for right ovarian cyst. - Diagnoses Provider Diagnoses: Right ovarian cyst Discharge ED - Sign-Out/Discharge Documenting (check all that apply): Patient Departure - Discharge Plan Condition: Stable Disposition: HOME Patient Education Materials: Ovarian Cyst (ED) Referrals: No Primary Care Phys,NOPCP [Primary Care Provider] - Ben Wright MD [Medical Doctor] - Additional Instructions: Alternate ibuprofen 600 mg with Tylenol 650 mg every 3 hours for pain. For breakthrough pain you may take Toradol instead of ibuprofen. Return to the ED for any new or worsening symptoms. you may also follow up with [facility] Dr. Fisher for further evaluation of ovarian cyst. - Billing Disposition and Condition Condition: STABLE Disposition: Home
[2019-06-24] MEDS ORDERED: Ondansetron INJ* 2 MG/ML VIAL IV ONE (23:15)
[2019-06-24] MEDS ORDERED: Ketorolac INJ* 30 MG/ML 1 ML VIAL IV ONE (23:15)
[2019-06-24] MEDS ORDERED: NS 0.9% 1000 ML** 1,000 ML IV ONE (23:15)
[2019-06-24 23:26] LABS: ABS Basophils 0.1 10^3/ul (0-0.2); ABS Eosinophils 0.1 10^3/ul (0-0.6); ABS Lymphocytes 1.3 10^3/ul (1.0-4.8); ABS Monocytes 0.7 10^3/ul (0-0.8); ABS Neutrophils 8.5 10^3/ul (1.5-7.7); Eosinophil % 1.3 %; Hematocrit 39 % (35-47); Hemoglobin 12.7 g/dL (12.0-16.0); Lymphocyte % 12.5 %; Mean Corpuscular HGB Conc 33 g/dL (31-36); Mean Corpuscular Hemoglobin 26 pg (27-31); Mean Corpuscular Volume 79 fL (80-97); Mean Platelet Volume 8.6 fL (7.4-10.4); Platelet Count 339 10^3/uL (150-450); Red Blood Count 4.95 10^6 /uL (3.70-4.87); Red Cell Distribution Width 17 % (10-15); White Blood Count 10.8 10^3/uL (3.5-10.8)
[2019-06-24 23:42] LABS: ALT 15 U/L (7-52); AST 16 U/L (13-39); Albumin 4.7 g/dL (3.2-5.2); Albumin/Globulin Ratio 1.3 (1-3); Alkaline Phosphatase 89 U/L (34-104); Anion Gap 8 mmol/L (2-11); BUN/Creatinine Ratio 10.6 (8-20); Blood Urea Nitrogen 10 mg/dL (6-24); C Reactive Protein 1.98 mg/L (<8.01); CO2 Carbon Dioxide 25 mmol/L (22-32); Calcium 10.1 mg/dL (8.6-10.3); Chloride 103 mmol/L (101-111); EGFR African American 82.5 (>60); EGFR Non-African American 68.2 (>60); Globulin 3.5 g/dL (2-4); Glucose 131 mg/dL (70-100); Potassium 3.8 mmol/L (3.5-5.0); Sodium 136 mmol/L (135-145); Total Protein 8.2 g/dL (6.4-8.9)
[2019-06-24 23:49] LABS: HCG Pregnancy < 0.60 mIU/mL
[2019-06-25] MEDS ORDERED: Acetaminophen TAB* 325 MG PO ONE (00:42)
[2019-06-25 00:46] LABS: Urine Appearance Clear; Urine Bilirubin Negative (Negative); Urine Blood Negative (Negative); Urine Color Yellow; Urine Glucose Negative (Negative); Urine Ketones Negative (Negative); Urine Nitrite Negative (Negative); Urine Protein Negative (Negative); Urine Specific Gravity 1.015 (1.010-1.030); Urine Urobilinogen Negative (Negative)
[2019-06-25 01:08] VITALS: BP 106/58
== END 2019-06-25 01:10 | disposition home or self-care (01) ==
LOC: ED 22:56
DX: N83.201 Unspecified ovarian cyst, right side (principal); R10.30 Lower abdominal pain, unspecified; R11.10 Vomiting, unspecified; F17.210 Nicotine dependence, cigarettes, uncomplicated
CPT/HCPCS: 36415; 76830; 80053; 81003; 83605; 83690; 84702; 85025; 86140; 96374; 96375; 99283; A9270-GY; J1885; J2405